=== PATIENT | male | born 1990 | race Caucasian/White ===

== ENCOUNTER 2017-12-21 17:25 | Emergency (ER) | payer OTHER ==
[~2017-12-21] VITALS: Ht 175.3 cm; Wt 86.2 kg
[~2017-12-21 17:25] MED LIST: Keflex500 MG PO; Norco 5-325 Ta1 EACH PO; OMEP20ER PO; PROM25 PO
[2017-12-21] MEDS ORDERED: Cyclobenzaprine5 MG PO (19:01)
[2017-12-21] MEDS ORDERED: Percocet 5-3251 EACH PO (19:01)
== END 2017-12-21 19:15 | disposition home or self-care (01) ==
LOC: ER 17:25
DX: M54.5 Low back pain (principal); Z87.891 Personal history of nicotine dependence
CPT/HCPCS: J1885; J2930

== ENCOUNTER 2019-02-03 09:23 | Emergency (ER) | payer SELFPAY ==
[~2019-02-03] VITALS: Ht 175.3 cm; Wt 77.1 kg
[~2019-02-03 09:23] MED LIST changes: +Cyclobenzaprine5 MG PO; +METPRE4DP PO; +Percocet 5-3251 EACH PO
[2019-02-03] MEDS ORDERED: Pepcid40 MG PO (10:20)
[2019-02-03] MEDS ORDERED: TRIA15CR3 TOP (10:20)
[2019-02-03] MEDS ORDERED: CLARITIN10 MG PO (10:20)
== END 2019-02-03 10:29 | disposition home or self-care (01) ==
LOC: ER 09:23
DX: L25.9 Unspecified contact dermatitis, unspecified cause (principal); Z87.891 Personal history of nicotine dependence
CPT/HCPCS: 96372; 99283-25; J3301